=== PATIENT | female | born 1985 | race Caucasian/White ===

== ENCOUNTER 2024-09-24 08:44 | Inpatient (IN) | payer OTHER ==
[~2024-09-24] VITALS: Ht 165.1 cm; Wt 48.9 kg
--- NOTE | 2024-09-24 09:31 | ED.PDOC ---
History of Present Illness HPI Comments 38 y.o female with PMHx of HTN, presents to the ED for a chief complaint of left arm pain radiating to her chest and back associated with SOB and nausea that started today. Patient reports symptoms presented at rest, appears anxious with recent stress factors in her life x 1 day. Patient denies any fever, chi lls, vomiting, leg swelling, history of cardiac disease or blood clots. 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 Family History Family History: Reviewed,noncontributory to illness, No family hx of Cancer, No family hx of DM, No family hx of Heart keri, No family hx of HTN, No family hx ofKidney keri, No family hx of Liver keri, No family hx of Lung keri, No family hx of Stroke Social History Smoker: Non-Smoker Alcohol: Denies ETOH Use Drugs: Denies Drug Use Lives In: Home Constitutional: denies: chills, diaphoresis, fatigue, fever, malaise, sweats, weakness, others EENTM: denies: blurred vision, double vision, ear bleeding, ear discharge, ear drainage, ear pain, ear ringing, eye pain, eye redness, hearing loss, mouth pain, mouth swelling, nasal discharge, nose bleeding, nose congestion, nose pain, photophobia, tearing, throat pain, throat swelling, voice changes, others Respiratory: denies: cough, hemoptysis, orthopnea, SOB at rest, shortness of breath, SOB with excertion, stridor, wheezing, others Cardiovascular: reports: chest pain, left arm pain; denies: dizzy spells, diaphoresis, Dyspnea on exertion, edema, irregular heart beat, lightheadedness, palpitations, PND, syncope, others Gastrointestinal: denies: abdomen distended, abdominal pain, blood streaked bowels, constipated, diarrhea, dysphagia, difficulty swallowing, hematemesis, melena, nausea, poor appetite, poor fluid intake, rectal bleeding, rectal pain, vomiting, others Genitourinary: denies: abnormal vagina bleeding, burning, dyspareunia, dysuria, flank pain, frequency, hematuria, incontinence, pain, , vagina discharge, urgency, others Neurological: denies: dizziness, fainting, headache, left sided numbness, left sided weakness, numbness, paresthesia, pre-existing deficit, right sided numbness, right sided weakness, seizure, speech problems, tingling, tremors, weakness, others Musculoskeletal: reports: back pain; denies: gout, joint pain, joint swelling, muscle pain, muscle stiffness, neck pain, others Integumetry: denies: bruises, change in color, change in hair/nails, dryness, laceration, lesions, lumps, rash, wounds, others Allergic/Immunocompromised: denies: Difficulty Healing, Frequent Infections, Hives, Itching, others Hematologic/Lymphatic: denies: anemia, blood clots, easy bleeding, easy bruisi ng, swollen glands, others Endocrine: denies: excessive hunger, excessive sweating, excessive thirst, exce ssive urination, flushing, intolerance to cold, intolerance to heat, unexplained weight gain, unexplained weight loss, others Psychiatric: reports: anxiety; denies: bipolar disorder, depression, hopeless, panic disorder, schizophrenia, sleepless, suicidal, others All Other Systems: Reviewed and Negative Physical Exam General Appearance: Moderate Distress (Patient appears anxious) HEENT: Normal ENT Inspection, Pharynx Normal, TMs Normal Neck: Full Range of Motion, Non-Tender, Normal, Normal Inspection Respiratory: Chest Non-Tender, Lungs Clear, No Accessory Muscle Use, No Respiratory Distress, Normal Breath Sounds Cardiovascular: No Edema, No JVD, No Murmur, No Gallop, Normal Peripheral Pulses, Regular Rate/Rhythm Breast Exam: Deferred Gastrointestinal: No Organomegaly, Non Tender, No Pulsatile Mass, Normal Bowel Sounds, Soft Genitalia: Deferred Pelvic: Deferred Rectal: Deferred Extremities: No calf tenderness, Normal capillary refill, Normal inspection, Normal range of motion, Non-tender, No pedal edema Musculoskeletal : Apperance: Normal Neurologic: Alert, sand operator II-XII nml as Tested, No Motor Deficits, Normal Affect, Normal Mood, No Sensory Deficits Cerebellar Function: Normal Reflexes: Normal Skin: Dry, Normal Color, Warm Lymphatic: No Adenopathy Was a procedure done? Was a procedure done?: No Differential Dx Considerations may include: Anxiety, Angina, Electrolyte imbalance, Dehydration, Strain, Sprain X-Ray, Labs, Meds, VS Vital Signs Date Time Temp Pulse Resp B/P (MAP) Pulse Ox O2 Delivery O2 Flow Rate FiO2 09/24/24 10:39 98.5 63 18 150/78 (102) 97 98.5 09/24/24 08:55 98.3 72 18 161/85 (110) 100 98.3 Lab Test 09/24/24 11:00 09/24/24 09:41 09/24/24 08:59 Range/Units Troponin I High Sensitivity 266 *H 53 *H </=34 ng/L White Blood Count 6.7 4.4-10.8 10^3/uL Red Blood Count 5.35 H 4.0-5.20 10^6/uL Hemoglobin 13.4 12.2-16.2 g/dL Hematocrit 40.6 36.0-46.0 % Mean Corpuscular Volume 76.0 L 80.0-100.0 fL Mean Corpuscular Hemoglobin 25.1 L 28.0-32.0 pg Mean Corpuscular Hemoglobin Concent 33.0 32.0-36.0 g/dL Red Cell Distribution Width 16.1 H 11.8-14.3 % Platelet Count 283 140-450 10^3/uL Mean Platelet Volume 6.9 6.9-10.8 fL Neutrophils (%) (Auto) 70.3 37.0-80.0 % Lymphocytes (%) (Auto) 20.0 10.0-50.0 % Monocytes (%) (Auto) 6.6 0.0-12.0 % Eosinophils (%) (Auto) 2.4 0.0-7.0 % Basophils (%) (Auto) 0.7 0.0-2.0 % Neutrophils # (Auto) 4.7 1.6-8.6 10 ^3/uL Lymphocytes # (Auto) 1.3 0.4-5.4 10 ^3/uL Monocytes # (Auto) 0.4 0-1.3 10 ^3/uL Eosinophils # (Auto) 0.2 0-0.8 10 ^3/uL Basophils # (Auto) 0 0-0.2 10 ^3/uL Nucleated Red Blood Cells 0.1 % Sodium Level 140 136-145 mmol/L Potassium Level 3.7 3.5-5.1 mmol/L Chloride Level 106 98-107 mmol/L Carbon Dioxide Level 23 20-31 mmol/L Anion Gap 11 5-15 Blood Urea Nitrogen 7 L 9-23 mg/dL Creatinine 0.82 0.550-1.02 mg/dL Glomerular Filtration Rate Calc 93 >90 mL/min BUN/Creatinine Ratio 8.5 L 10.0-20.0 Serum Glucose 88 74-106 mg/dL Calcium Level 10.0 8.7-10.4 mg/dL Urine Color Light-yellow Yellow Urine Clarity Clear Clear Urine pH 7.0 5.0-9.0 Urine Specific [place] 1.012 1.001-1.035 Urine Protein 1+ H Negative Urine Ketones Negative Negative Urine Blood Negative Negative /uL Urine Nitrite Negative Negative Urine Bilirubin Negative Negative Urine Urobilinogen Normal Negative mg/dL Urine Leukocyte Esterase Negative Negative /uL Urine RBC 1 0 - 4 /hpf Urine Microscopic WBC 1 0-5 /HPF Urine Squamous Epithelial Cells Few <5 /hpf Urine Bacteria None seen None Seen /hpf Urine Hyaline Casts Few 0 - 2 /lpf Urine Mucus Few None Seen Urine Glucose Normal Normal mg/dL CHEST RADIOGRAPH Indication: palpitations Technique: Single frontal view of the chest was obtained COMPARISON: None FINDINGS: Lines and Tubes: None Lungs: Clear Pleura: No effusion. No pneumothorax. Cardiomediastinal contours: Unremarkable Bones: Unremarkable IMPRESSION: No acute disease. Time of 1ST Reevaluation: 09:31 Reevaluation 1ST: Unchanged Patient Education/Counseling: Diagnosis, Treatment, Prognosis Family Education/Counseling: Diagnosis, Treatment, Prognosis SEPSIS Sepsis Screen Date sepsis recognized/suspect: Sep 24, 2024 Time Sepsis recognized/suspect: 854 Recent Procedure: No On Antibiotic Therapy: No Respiratory Rate >20: No Heart Rate >90: No Temp<36 C (96.8 F) or >38.3 C: No SBP <90 or MAP <65 mmHG: No New Acute Mental Status Change: No Is the patient on CPAP, BIPAP,: No Orders/Vitals/Labs Physician Orders Chest Portable (09/24/24 09:28) Electrocardigram (09/24/24 09:28) Troponin-I Hs (09/24/24 12:28) Electrocardigram (09/24/24 10:28) Electrocardigram (09/24/24 12:28) Aspirin Tablet (09/24/24 12:30) Vital Signs Date Time Temp Pulse Resp B/P (MAP) Pulse Ox O2 Delivery O2 Flow Rate FiO2 09/24/24 10:39 98.5 63 18 150/78 (102) 97 98.5 09/24/24 08:55 98.3 72 18 161/85 (110) 100 98.3 Laboratory Tests Test 09/24/24 09:41 White Blood Count 6.7 10^3/uL (4.4-10.8) Departure 1 Departure Time of Disposition: 12:17 (Patient presented with chest pain that was concerning for possible STEMI, ACS, PE, Pneumonia, Muscle Strain, COPD, Dissection. Data: 1. I ordered and reviewed the result of at least 3 labs including a CBC, BMP, and Troponin. 2. I independently interpreted the following tests: EKG which shows normal sinus rhythm and Chest X-ray which shows benign chest.Risk:This patient has a high risk of morbidity due to further diagnostic testing or treatment and may suffer from an acute cardiac or respiratory disorder. Workup reveals concern for ACS and patient should be admitted for further workup and possible expert consultation. ) Impression: Primary Impression: Acute chest pain Additional Impression: Elevated troponin Disposition: ADMITTED INPATIENT Admit to: Med Surg Condition: Guarded Critical Care Note Critical Care Time?: Yes Critical care comment: Acute chest pain Authorized and Performed by: Kimberley Centeno MD Total critical care time: Approximately 43 minutes Due to a high probability of clinically significant, life threatening deterioration, the patient required my highest level of preparedness to intervene emergently and I personally spent this critical care time directly and personally managing the patient. This critical care time included obtaining a history; examining the patient; pulse oximetry; ordering and review of studies; arranging urgent treatment with development of a management plan; evaluation of patient's response to treatment; frequent reassessment; and, discussions with other providers. This critical care time was performed to assess and manage the high probability of imminent, life-threatening deterioration that could result in multi-organ failure. It was exclusive of separately billable procedures and treating other patients and teaching time. Please see my other sections and the rest of the note for further information on patient assessment and treatment. Stability Stability form required: No Heart Score Heart Score: Heart Score Response (Comments) Value History Moderate Suspicious 1 EKG Normal 0 Age <45 0 Risk Factors No known risk factors 0 Troponin >3 x's Normal limit 2 Total 3 I personally scribed for KIMBERLEY CENTENO MD ([facility]) on 09/24/24 at 09:31. Electronically submitted by Annie Dillard ([facility]). I personally scribed for KIMBERLEY CENTENO MD ([facility]) on 09/24/24 at 10:42. Electronically submitted by Annie Dillard ([facility]). KIMBERLEY CENTENO MD Sep 24, 2024 09:31
[2024-09-24 09:32] LABS: Urine Bacteria None Seen /hpf (None Seen)
[2024-09-24 09:45] LABS: Urine Blood Negative /uL (Negative); Urine Clarity Clear (Clear); Urine Color Light-Yellow (Yellow); Urine Hyaline Cast FEW /lpf (0 - 2); Urine Mucus FEW (None Seen); Urine Protein, UAD 1+ (Negative); Urine Specific Gravity 1.012 (1.001-1.035); Urine Squamous Epithelial Cell FEW /hpf (<5); Urine Urobilinogen Normal (Negative); Urine WBC 1 /HPF (0-5)
[2024-09-24 10:05] LABS: Basophils # (auto) 0 10 ^3/uL (0-0.2); Basophils % (auto) 0.7 % (0.0-2.0); Eosinophils # (auto) 0.2 10 ^3/uL (0-0.8); Eosinophils % (auto) 2.4 % (0.0-7.0); Hematocrit 40.6 % (36.0-46.0); Hemoglobin 13.4 g/dL (12.2-16.2); Lymphocytes # (auto) 1.3 10 ^3/uL (0.4-5.4); Mean Corpuscular Hemoglobin 25.1 pg (28.0-32.0); Monocytes # (auto) 0.4 10 ^3/uL (0-1.3); Monocytes % (auto) 6.6 % (0.0-12.0); Neutrophils # (auto) 4.7 10 ^3/uL (1.6-8.6); Neutrophils % (auto) 70.3 % (37.0-80.0); Nucleated Red Blood Cells % 0.1 %; Platelet Count (auto) 283 10^3/uL (140-450); Red Blood Cells 5.35 10^6/uL (4.0-5.20); Red Cell Distribution Width 16.1 % (11.8-14.3); White Blood Cell 6.7 10^3/uL (4.4-10.8)
--- NOTE | 2024-09-24 10:14 | DVH ---
CHEST RADIOGRAPH Indication: palpitations Technique: Single frontal view of the chest was obtained COMPARISON: None FINDINGS: Lines and Tubes: None Lungs: Clear Pleura: No effusion. No pneumothorax. Cardiomediastinal contours: Unremarkable Bones: Unremarkable IMPRESSION: No acute disease.
[2024-09-24 10:40] LABS: Chloride 106 mmol/L (98-107); Potassium 3.7 mmol/L (3.5-5.1); Sodium 140 mmol/L (136-145)
[2024-09-24 10:41] LABS: Anion Gap 11 (5-15); Carbon Dioxide 23 mmol/L (20-31)
[2024-09-24 10:46] LABS: BUN/Creatinine Ratio 8.5 (10.0-20.0); Glucose 88 mg/dL (74-106)
[2024-09-24 10:49] LABS: Blood Urea Nitrogen 7 mg/dL (9-23)
[2024-09-24 13:20] VITALS: PULSE 60; RESP 12; O2SAT 99
--- NOTE | 2024-09-24 13:41 | ECG ---
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
[2024-09-24] MEDS: SODIUM CHLORIDE 0.9% 1,000 ML IV ONE (13:52)
[2024-09-24] MEDS: ASPirin 81 mg TAB PO ONE (14:01)
[2024-09-24] MEDS: ONDANSETRON HCL 4 MG/2 ML VIAL IV ONE (14:01)
[2024-09-24] MEDS: MORPHINE SULFATE 4 MG/ML SYR/VIAL IV ONE (14:02)
--- NOTE | 2024-09-24 15:55 | DVHHP2 ---
Admitting Diagnosis: Chest pain History of Present Illness 38 y.o female with PMHx of HTN, presents to the ED for a chief complaint of left arm pain radiating to her chest and back associated with SOB and nausea that started today. Patient reports symptoms presented at rest, appears anxious with recent stress factors in her life x 1 day. Patient denies any fever, chills, vomiting, leg swelling, history of cardiac disease or blood clots. PAST MEDICAL HISTORY: HTN Surgical History: Denies all surgeries SPRING INTERN History: No Pertinent SPRING INTERN History Family History Family History: Reviewed,noncontributory to illness, No family hx of Cancer, No family hx of DM, No family hx of Heart keri, No family hx of HTN, No family hx o fKidney keri, No family hx of Liver keri, No family hx of Lung keri, No family hx of Stroke Social History Smoker: Non-Smoker Alcohol: Denies ETOH Use Drugs: Denies Drug Use Lives In: Home Allergies: Coded Allergies: NO KNOWN ALLERGIES (Unverified , 09/24/24) Current Medications Current Medications Medications (Trade) Dose Ordered Sig/Liat Route PRN Reason Start Time Stop Time Status Last Admin Heparin Sodium/ Dextrose 250 ml @ 13.488 mls/ hr [id number] IV 09/24/24 16:00 UNV Vital Signs Vital Signs Date Time Temp Pulse Resp B/P (MAP) Pulse Ox O2 Delivery O2 Flow Rate FiO2 09/24/24 14:32 60 15 151/66 09/24/24 13:20 99 Room Air* 0 21 09/24/24 13:20 98.1 98.1 Physical Exam Generally -38 years old woman, morbidly obese, resting in bed. Mild distress HEENT atraumatic, normocephalic Heart-regular rate and rhythm Lungs clear to auscultate bilaterally Abdomen soft nontender nondistended Musculoskeletal-no edema cyanosis Neuro-AO x3, no focal deficits Results Labs Test 09/24/24 13:33 09/24/24 09:41 09/24/24 08:59 Range/Units Troponin I High Sensitivity 1419 *H </=34 ng/L White Blood Count 6.7 4.4-10.8 10^3/uL Red Blood Count 5.35 H 4.0-5.20 10^6/uL Hemoglobin 13.4 12.2-16.2 g/dL Hematocrit 40.6 36.0-46.0 % Mean Corpuscular Volume 76.0 L 80.0-100.0 fL Mean Corpuscular Hemoglobin 25.1 L 28.0-32.0 pg Mean Corpuscular Hemoglobin Concent 33.0 32.0-36.0 g/dL Red Cell Distribution Width 16.1 H 11.8-14.3 % Platelet Count 283 140-450 10^3/uL Mean Platelet Volume 6.9 6.9-10.8 fL Neutrophils (%) (Auto) 70.3 37.0-80.0 % Lymphocytes (%) (Auto) 20.0 10.0-50.0 % Monocytes (%) (Auto) 6.6 0.0-12.0 % Eosinophils (%) (Auto) 2.4 0.0-7.0 % Basophils (%) (Auto) 0.7 0.0-2.0 % Neutrophils # (Auto) 4.7 1.6-8.6 10 ^3/uL Lymphocytes # (Auto) 1.3 0.4-5.4 10 ^3/uL Monocytes # (Auto) 0.4 0-1.3 10 ^3/uL Eosinophils # (Auto) 0.2 0-0.8 10 ^3/uL Basophils # (Auto) 0 0-0.2 10 ^3/uL Nucleated Red Blood Cells 0.1 % Sodium Level 140 136-145 mmol/L Potassium Level 3.7 3.5-5.1 mmol/L Chloride Level 106 98-107 mmol/L Carbon Dioxide Level 23 20-31 mmol/L Anion Gap 11 5-15 Blood Urea Nitrogen 7 L 9-23 mg/dL Creatinine 0.82 0.550-1.02 mg/dL Glomerular Filtration Rate Calc 93 >90 mL/min BUN/Creatinine Ratio 8.5 L 10.0-20.0 Serum Glucose 88 74-106 mg/dL Calcium Level 10.0 8.7-10.4 mg/dL Urine Color Light-yellow Yellow Urine Clarity Clear Clear Urine pH 7.0 5.0-9.0 Urine Specific [place] 1.012 1.001-1.035 Urine Protein 1+ H Negative Urine Ketones Negative Negative Urine Blood Negative Negative /uL Urine Nitrite Negative Negative Urine Bilirubin Negative Negative Urine Urobilinogen Normal Negative mg/dL Urine Leukocyte Esterase Negative Negative /uL Urine RBC 1 0 - 4 /hpf Urine Microscopic WBC 1 0-5 /HPF Urine Squamous Epithelial Cells Few <5 /hpf Urine Bacteria None seen None Seen /hpf Urine Hyaline Casts Few 0 - 2 /lpf Urine Mucus Few None Seen Urine Glucose Normal Normal mg/dL Primary Diagnosis Chest pain Elevated troponin suspect NSTEMI Plan EKG shows no significant ST segment changes Patient states she has persistent chest pain improved since eight Troponin trending up Check echo of the heart rule out ACS Cardiology consult for lower troponin rule out ACS Start heparin drip for ACS protocol Pain control NPO except meds for possible cardiac catheterization if suspect STEMI Full code SCD for DVT prophylaxis PPI for GI prophylaxis Plan discussed with: Patient Date of Service: Sep 24, 2024 Billing Provider: ALBERTO MENDEZ MD Common Visit Codes: [id number] INP/OBS CARE (HIGH) ALBERTO MENDEZ MD Sep 24, 2024 15:55
[2024-09-24] MEDS: LORazepam 2MG/ML-1ML VIAL IV ONE (15:59)
[2024-09-24] MEDS ORDERED: NITROGLYCERIN 0.4 MG SL TAB SL PRN (16:00)
[2024-09-24 16:25] LABS: Eosinophils # (auto) 0.1 10 ^3/uL (0-0.8); Hematocrit 37.2 % (36.0-46.0); Mean Corpuscular Hgb Conc. 32.7 g/dL (32.0-36.0); Monocytes # (auto) 0.5 10 ^3/uL (0-1.3); Neutrophils # (auto) 5.8 10 ^3/uL (1.6-8.6); Nucleated Red Blood Cells % 0.1 %; White Blood Cell 7.9 10^3/uL (4.4-10.8)
[2024-09-24 16:26] LABS: Basophils # (auto) 0.1 10 ^3/uL (0-0.2); Basophils % (auto) 0.8 % (0.0-2.0); Eosinophils % (auto) 1.4 % (0.0-7.0); Hemoglobin 12.2 g/dL (12.2-16.2); Lymphocytes # (auto) 1.4 10 ^3/uL (0.4-5.4); Lymphocytes % (auto) 17.6 % (10.0-50.0); Mean Corpuscular Hemoglobin 25.1 pg (28.0-32.0); Mean Corpuscular Volume 76.8 fL (80.0-100.0); Monocytes % (auto) 6.1 % (0.0-12.0); Neutrophils % (auto) 74.1 % (37.0-80.0); Platelet Count (auto) 278 10^3/uL (140-450); Red Blood Cells 4.84 10^6/uL (4.0-5.20)
--- NOTE | 2024-09-24 16:27 | CONS ---
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
--- NOTE | 2024-09-24 16:48 | DVHINCON2 ---
Date Seen: Sep 24, 2024 Referring Physician MD Sammy Reason for Consultation Chest pain, elevated troponin History of Present Illness This is a 38-year-old female patient who presents to the emergency room with chief complaint of chest pain. The patient reports that at approximately 0830 this morning after waking up, she began to experience left arm pain. She states that shortly thereafter her left arm pain turned into chest pain. She describes the pain as unprovoked, intermittent, burning in nature, substernal with radiation to her upper back. Associated symptoms include shortness of breath. Initial twelve lead electrocardiogram reveals normal sinus rhythm with nonspecific ST segment changes to anterior leads and baseline wander throughout. Initial troponin level of 53ng/L with significant up trend thereafter and current peak level at 1419ng/L. Significant past medical history includes hypertension, dyslipidemia, kidney stones, and obesity. Past Medical History Past medical history reviewed. No other significant than mentioned above. Past Surgical History Bilateral tubal ligation Family History Family history reviewed. Social History Denies the use of tobacco, alcohol or illicit drugs. Allergies: Coded Allergies: NO KNOWN ALLERGIES (Unverified , 09/24/24) Home Meds Home medications reviewed. Current Medications Current Medications Medications (Trade) Dose Ordered Sig/Liat Route PRN Reason Start Time Stop Time Status Last Admin Heparin Sodium/ Dextrose 250 ml @ 13 mls/hr [id number] IV 09/24/24 16:00 Sodium Chloride (Saline Lock Ns) 10 ml Q8HR IV 09/24/24 22:00 Docusate Sodium (Colace Capsule) 100 mg BIDPRN PRN PO FOR CONSTIPATION 09/24/24 16:00 Acetaminophen (Tylenol Tablet) 650 mg Q6HP PRN PO PAIN SCALE 1-3 OR TEMP>100.4 09/24/24 16:00 Acetaminophen/ Hydrocodone Bitart ([place] 5/325MG Tab) 1 tab Q4HP PRN PO MODERATE PAIN (4-6 PAIN SCALE) 09/24/24 16:00 Ondansetron HCl (Zofran) 4 mg Q4HP PRN IV NAUSEA / VOMITING 09/24/24 16:00 Nitroglycerin (Ntrostat Sublingual) 0.4 mg Q5MINP PRN SL FOR CHEST PAIN 09/24/24 16:00 Morphine Sulfate 2 mg Q30M PRN IV FOR CHEST PAIN 09/24/24 16:00 Pantoprazole Sodium (Protonix) 40 mg DAILY IV 09/25/24 10:00 Review of Systems Constitutional: No symptom reported Ears, Nose, & Throat: No symptom reported Eyes: No symptom reported Neurological: No symptoms reported Pulmonary/Respiratory: Shortness of breath Cardiovascular: Chest pain Gastrointestinal: No symptom reported Genitourinary: No symptom reported Musculoskeletal: No symptom reported Skin: No symptom reported Psychiatric: No symptom reported Endocrine: No symptom reported Hematologic/Lymphatic: No symptom reported Vital Signs Vital Signs Date Time Temp Pulse Resp B/P (MAP) Pulse Ox O2 Delivery O2 Flow Rate FiO2 09/24/24 14:32 60 15 151/66 09/24/24 13:20 99 Room Air* 0 21 09/24/24 13:20 98.1 98.1 Physical Exam General Appearance: Cooperative. Obese Pulmonary/Respiratory: Clear, bilateral breaths sounds. Cardiovascular/Chest: Regular rate and rhythm. Peripheral Pulses: 2+ Radial (R). 2+ Radial (L). 2+ Pedal (R). 2+ Pedal (L) Abdominal Exam: Normal bowel sounds. Ankle Exam: Negative ankle edema Lower extremities: Negative lower extremity edema Neuro/Mental Status: A/OX4, coherent. Thoughts/Psych: Normal thought pattern. Appropriate mood and affect. Good judgment and insight. Appearance: No acute distress. Skin Exam: Normal inspection. Normal color. Warm and dry. Labs/Diagnostic Data Labs Test 09/24/24 16:08 09/24/24 09:41 09/24/24 08:59 Range/Units White Blood Count 7.9 4.4-10.8 10^3/uL Red Blood Count 4.84 4.0-5.20 10^6/uL Hemoglobin 12.2 12.2-16.2 g/dL Hematocrit 37.2 36.0-46.0 % Mean Corpuscular Volume 76.8 L 80.0-100.0 fL Mean Corpuscular Hemoglobin 25.1 L 28.0-32.0 pg Mean Corpuscular Hemoglobin Concent 32.7 32.0-36.0 g/dL Red Cell Distribution Width 16.0 H 11.8-14.3 % Platelet Count 278 140-450 10^3/uL Mean Platelet Volume 7.0 6.9-10.8 fL Neutrophils (%) (Auto) 74.1 37.0-80.0 % Lymphocytes (%) (Auto) 17.6 10.0-50.0 % Monocytes (%) (Auto) 6.1 0.0-12.0 % Eosinophils (%) (Auto) 1.4 0.0-7.0 % Basophils (%) (Auto) 0.8 0.0-2.0 % Neutrophils # (Auto) 5.8 1.6-8.6 10 ^3/uL Lymphocytes # (Auto) 1.4 0.4-5.4 10 ^3/uL Monocytes # (Auto) 0.5 0-1.3 10 ^3/uL Eosinophils # (Auto) 0.1 0-0.8 10 ^3/uL Basophils # (Auto) 0.1 0-0.2 10 ^3/uL Nucleated Red Blood Cells 0.1 % Sodium Level 140 136-145 mmol/L Potassium Level 3.7 3.5-5.1 mmol/L Chloride Level 106 98-107 mmol/L Carbon Dioxide Level 23 20-31 mmol/L Anion Gap 11 5-15 Blood Urea Nitrogen 7 L 9-23 mg/dL Creatinine 0.82 0.550-1.02 mg/dL Glomerular Filtration Rate Calc 93 >90 mL/min BUN/Creatinine Ratio 8.5 L 10.0-20.0 Serum Glucose 88 74-106 mg/dL Calcium Level 10.0 8.7-10.4 mg/dL Urine Color Light-yellow Yellow Urine Clarity Clear Clear Urine pH 7.0 5.0-9.0 Urine Specific [place] 1.012 1.001-1.035 Urine Protein 1+ H Negative Urine Ketones Negative Negative Urine Blood Negative Negative /uL Urine Nitrite Negative Negative Urine Bilirubin Negative Negative Urine Urobilinogen Normal Negative mg/dL Urine Leukocyte Esterase Negative Negative /uL Urine RBC 1 0 - 4 /hpf Urine Microscopic WBC 1 0-5 /HPF Urine Squamous Epithelial Cells Few <5 /hpf Urine Bacteria None seen None Seen /hpf Urine Hyaline Casts Few 0 - 2 /lpf Urine Mucus Few None Seen Urine Glucose Normal Normal mg/dL Assessment Chest pain, rule out coronary artery disease Rule out structural heart disease Hypertension Dyslipidemia Obesity Plan/Recommendation We will continue with the following plan/recommendations (Dr. Bland): * Transthoracic echocardiogram to evaluate cardiac function * Chest pain protocol * PIERRE score: 2 points * HEART score: 4 points * Continue heparin drip per ACS protocol * Blood pressure control * Single antiplatelet therapy and lipid-lowering agent * Close Cardiac surveillance Case discussed with . Given the patient's clinical presentation, elevated troponin levels, and twelve lead electrocardiogram, the patient may benefit from a coronary angiogram with left heart catheterization. The procedure was discussed with the patient in full detail including risks and benefits. Risks include but are not limited to bleeding, contrast-induced nephropathy, stroke, and even . The patient understands and is agreeable to undergo the procedure. We will schedule the patient at soonest availability on 09/25/24. Thank you for allowing us to care for this patient. Please call with any questions or concerns. Critical care time spent: 44 minutes This medical document was created using an electronic medical record system with voice recognition software and computerized dictation system. Although this document has been carefully reviewed, there might still be some phonetic and typographical errors. Occasional wrong-word or ``sound-alike substitutions may have occurred due to the inherent limitations of voice recognition software. These areas are purely typographical due to imperfections of the software programs and do not reflect any compromise in the patient's medical care. Please read the chart carefully and recognize, using context, where these substitutions have occurred. Plan discussed with: Patient NYHA Physical activity limitations: NA Date of Service: Sep 24, 2024 Billing Provider: CLAUDIA GUSMAN Cardiology Common Codes: [id number] INP/OBS CARE (High) Cardiology Consultation Codes: [id number] CONSULT <45MIN CLAUDIA GUSMAN Sep 24, 2024 16:48
[2024-09-24 16:51] LABS: Triglycerides 143 mg/dL (< 150)
[2024-09-24 16:53] LABS: HDL Cholesterol 43 mg/dL (40-59)
[2024-09-24 16:54] LABS: Cholesterol 162 mg/dL (< 200)
[2024-09-24 16:56] LABS: LDL Cholesterol 105 mg/dL (< 100)
[2024-09-24 17:08] LABS: INR 1.03 (0.9-1.15); Partial Thromboplastin Time 27.4 SEC (24.5-34.5); Prothrombin Time 10.9 sec (9.3-11.8)
[2024-09-24] MEDS: HEPARIN SODIUM (PORCINE) 5000 UNITS/ML 1ML VIAL IV ONE (17:09)
[2024-09-24] MEDS: HEPARIN DRIP/D5W 100UNITS/ML 250 ML IV SCH (17:11)
[2024-09-24] MEDS ORDERED: hydrALAZINE HCL 20 MG/ML VL IV PRN (17:30)
[2024-09-24] MEDS: ONDANSETRON HCL 4 MG/2 ML VIAL IV PRN (18:22)
[2024-09-24] MEDS: MORPHINE SULFATE INJ 2 MG/ml SYRG IV PRN (18:23)
[2024-09-24 19:55] VITALS: PULSE 75; RESP 16; O2SAT 99
[2024-09-24] MEDS: ATORVASTATIN 20 MG TAB PO SCH (21:49)
[2024-09-24] MEDS: SODIUM CHLOR 0.9% PF (SALINE LOCK) 10ML VIAL/SYR IV SCH (21:49)
[2024-09-24 22:33] LABS: INR 1.03 (0.9-1.15); Partial Thromboplastin Time 26.7 SEC (24.5-34.5); Prothrombin Time 10.9 sec (9.3-11.8)
[2024-09-25] VITALS (17 sets, daily range): BP systolic 117–160; BP diastolic 64–92; PULSE 61–96; RESP 14–19; TEMP 97.6–98.3; O2SAT 93–100
[2024-09-25] MEDS: HEPARIN SODIUM (PORCINE) 5000 UNITS/ML 1ML VIAL IV ONE (00:16)
[2024-09-25] MEDS: HEPARIN DRIP/D5W 100UNITS/ML 250 ML IV SCH (00:17)
[2024-09-25] MEDS: HYDROcodone-ACET 5/325MG TAB PO PRN (01:29)
[2024-09-25] MEDS: ACETAMINOPHEN 325 MG TAB PO PRN (01:30)
[2024-09-25] MEDS: TEMAZEPAM 15 MG CAP PO ONE (04:45)
[2024-09-25 07:42] LABS: Basophils # (auto) 0.1 10 ^3/uL (0-0.2); Basophils % (auto) 0.8 % (0.0-2.0); Eosinophils # (auto) 0.2 10 ^3/uL (0-0.8); Eosinophils % (auto) 3.2 % (0.0-7.0); Hematocrit 37.9 % (36.0-46.0); Hemoglobin 12.4 g/dL (12.2-16.2); Lymphocytes # (auto) 1.9 10 ^3/uL (0.4-5.4); Lymphocytes % (auto) 29.8 % (10.0-50.0); Mean Corpuscular Hemoglobin 24.7 pg (28.0-32.0); Mean Corpuscular Hgb Conc. 32.7 g/dL (32.0-36.0); Mean Corpuscular Volume 75.7 fL (80.0-100.0); Monocytes # (auto) 0.5 10 ^3/uL (0-1.3); Monocytes % (auto) 8.2 % (0.0-12.0); Neutrophils # (auto) 3.7 10 ^3/uL (1.6-8.6); Nucleated Red Blood Cells % 0.1 %; Platelet Count (auto) 279 10^3/uL (140-450); Red Cell Distribution Width 16.1 % (11.8-14.3); White Blood Cell 6.3 10^3/uL (4.4-10.8)
[2024-09-25 07:46] LABS: INR 1.01 (0.9-1.15); Partial Thromboplastin Time 27.4 SEC (24.5-34.5); Prothrombin Time 10.7 sec (9.3-11.8)
[2024-09-25 07:50] LABS: Alanine Aminotransferase 14 U/L (7-40); Albumin 4.1 g/dL (3.2-4.8); Alkaline Phosphatase 87 U/L (46-116); Anion Gap 7 (5-15); Aspartate Aminotransferase 26 U/L (<34); BUN/Creatinine Ratio 11.4 (10.0-20.0); Blood Urea Nitrogen 12 mg/dL (9-23); Calcium 9.9 mg/dL (8.7-10.4); Carbon Dioxide 28 mmol/L (20-31); Chloride 106 mmol/L (98-107); Glucose 89 mg/dL (74-106); Potassium 4.2 mmol/L (3.5-5.1); Sodium 141 mmol/L (136-145); Total Protein 6.4 g/dL (5.7-8.2)
[2024-09-25 07:52] LABS: Bilirubin, Total 0.2 mg/dL (0.2-1.0)
--- NOTE | 2024-09-25 08:40 | CONS ---
Pharmacy Clinical Information: HEPARIN PROTOCOL SPOKE WITH CRISTIAN NUNEZ, CT SCAN TECHNOLOGIST RN WAS RUNNING RATE AT 16UNITS/HR NOT 1600UNITS/HR. RATE WAS CHANGED AT 0730 09/25/24. WILL NOT CHANGE RATE AT THIS TIME AND REDRAW APTT 6 HOURS FROM RATE CHANGE AT 0730. NEXT APTT DRAW AT 1330. PER PHARMACY PROTOCOL CONSTANZA BURRIS PHARMACIST Sep 25, 2024 08:39
[2024-09-25] MEDS: PANTOPRAZOLE 40 MG/10 ML VIAL INJ IV SCH (09:52)
[2024-09-25] MEDS: LISINOPRIL 20 MG TAB PO SCH (09:53)
[2024-09-25] MEDS: ASPirin 81 mg TAB PO SCH (09:54)
--- NOTE | 2024-09-25 13:53 | DVHOP2 ---
Operative Report - 2 Report Details Date: 09/25/24 Preop Diagnosis: CAD Postop Diagnosis: Mild cardiomyopathy Surgeon: Jann Bland MD Anesthesiologist: Conscious sedation Anesthesia: Mac, Local Consent: The patient was informed of the risks and benefits of the procedure. These include but are not limited to complications of anesthesia, postoperative infection, incomplete relief of symptoms, recurrence of symptoms, damage to blood vessels, nerves and tendons, deep venous thrombosis, pulmonary embolism and possible need for repeat surgery in the future. Complications: No complications Findings: Normal coronaries. Mild cardiomyopathy Indications for Surgery: Abnormal troponins Name of Procedure Performed Left heart catheterization. Bilateral cine coronary angiography. Left ventriculography. Procedure Details Procedure Details: Prior local anesthesia with 2% lidocaine to the right wrist and full informed consent obtained the patient was prepped and draped in usual fashion followed by placement of a six Faro[place] sheath into the right radial artery through which a multipurpose catheter was used for ventriculography and cannulation of both right and left coronary ostia. No complications. Hemodynamics: Aortic blood pressure was 110/70. End-diastolic pressure was 15. No gradient across the aortic valve on pullback. Coronary anatomy RCA is a large dominant vessel it is normal in its proximal mid and distal segments. PDA and posterolateral branches are normal. Left main is large and normal. Left anterior descending is large with two diagonals free of significant disease. Circumflex is large with two marginals free of significant disease. Ventriculography in the LUCIA projection shows an EF of 40% with global hypokinesis. Impression: Elevated left ventricular end-diastolic pressure at rest with decreased ejection fraction. Normal coronaries Recommendations: Medical therapy is warranted. Risk factor modification to continue. Condition Good Disposition Date of Service: Sep 25, 2024 Billing Provider: JANN BLAND Sr., MD Cardiology Common Codes: [id number] INP/OBS CARE (High) Cardiology Procedure Codes: [id number] HEART CATH W/INTRA INJ JANN BLAND Sr., MD Sep 25, 2024 13:53
--- NOTE | 2024-09-25 14:17 | ECG ---
[facility] Test Date: 2024-09-24 Test Time: 09:04:31 Pat Name: ZELDA HASTINGS Department: ER Room: 0278T Gender: F Connie Cleaner: GP : 1985 Requested By: KIMBERLEY CENTENO Order Number: [id number] Reading MD: Sudheer Bland Measurements Intervals [place] Rate: 91 P: 55 CA: 145 QRS: 67 QRSD: 101 T: 5 QT: 373 QTc: 459 Interpretive Statements Sinus rhythm Low voltage, precordial leads Borderline repolarization abnormality Minimal ST elevation, lateral leads Baseline wander in lead(s) II,aVF,V3,V4 Electronically Signed On 09-26-2024 21:17:06 PDT by Sudheer Bland Please click the below link to view image of tracing.
[2024-09-25] MEDS: VERAPAMIL 2.5MG/ML INJ 2ML VIAL IV ONE (14:25)
[2024-09-25] MEDS: fentaNYL CITRATE 100 MCG/2 ML VL ONE (14:26)
[2024-09-25] MEDS: MIDAZOLAM HCL 2MG/2ML 2ml VIAL (1mg/ml) ONE (14:27)
[2024-09-25] MEDS: LIDOCAINE 2%HCL (LOCAL ANESTH.) INJ 20ML MDV ONE (14:28)
[2024-09-25] MEDS: IODIXANOL 320MG/ML 100ML BTL IV ONE (14:31)
[2024-09-25 14:49] LABS: INR 1.04 (0.9-1.15); Partial Thromboplastin Time 41.2 SEC (24.5-34.5)
--- NOTE | 2024-09-25 15:26 | DVHPN2 ---
Progress Note Date Seen: Sep 25, 2024 Medical Necessity Reason Pt with a Central, PICC or Fol: No Subjective Patient reports: No new complaints Review of Systems: HEENT:Normal, CVS:Normal, RESPIRATORY:Normal, GI:Normal, :Normal, MSK:Normal, NEURO:Normal Objective vital signs Vital Sign Date Time Temp Pulse Resp B/P (MAP) Pulse Ox O2 Delivery O2 Flow Rate FiO2 09/25/24 14:45 71 16 131/82 (98) 97 09/25/24 13:45 97.6 97.6 09/25/24 08:00 Nasal Cannula* 2 28 Total Intake and Output 09/24/24 09/24/24 09/25/24 15:00 23:00 07:00 Intake Total 1000 ml Balance 1000 ml medications Current Medications Medications Dose Ordered Sig/Liat Route Start Time Stop Time Status Last Admin Dose Admin Sodium Chloride 10 ml Q8HR IV 09/24/24 22:00 09/25/24 14:40 10 ML Docusate Sodium 100 mg BIDPRN PRN PO 09/24/24 16:00 Acetaminophen 650 mg Q6HP PRN PO 09/24/24 16:00 09/25/24 09:54 650 MG Acetaminophen/ Hydrocodone Bitart 1 tab Q4HP PRN PO 09/24/24 16:00 09/25/24 14:45 1 TAB Ondansetron HCl 4 mg Q4HP PRN IV 09/24/24 16:00 09/25/24 01:29 4 MG Nitroglycerin 0.4 mg Q5MINP PRN SL 09/24/24 16:00 Morphine Sulfate 2 mg Q30M PRN IV 09/24/24 16:00 09/25/24 04:27 2 MG Pantoprazole Sodium 40 mg DAILY IV 09/25/24 10:00 09/25/24 09:52 40 MG Aspirin 81 mg DAILY PO 09/25/24 10:00 09/25/24 09:54 81 MG Atorvastatin Calcium 20 mg HS PO 09/24/24 22:00 09/24/24 21:49 20 MG Hydralazine HCl 10 mg Q6HP PRN IV 09/24/24 17:30 Lisinopril 20 mg DAILY PO 09/25/24 10:00 09/25/24 09:53 20 MG Examination: GENERAL:Normal, HEENT:Normal, NECK:Normal, LUNGS:Normal, CVS:Normal, ABDOMEN:Normal, MSK:Normal, SKIN:Normal, NEURO:Normal, :Normal laboratory and microbiology Laboratory Tests 09/25/24 07:07 Test 09/25/24 07:07 Range/Units Serum Glucose 89 74-106 mg/dL Problem List/Assessment/Plan Problem List/Assessment/Plan #1 acute mi s/p angio: cont meds #2 htn: monitor #3 morbid obesity #4 hyperlipidemia Plan discussed with: Patient Critical Care Time (mins): 41 (critical care time was 41 mins) Date of Service: Sep 25, 2024 Billing Provider: ROSELIA BROWN MD Common Visit Codes: [id number] CARE 30-74 MIN ROSELIA BROWN MD Sep 25, 2024 15:26
--- NOTE | 2024-09-25 16:31 | DVHSR ---
APPROVED REPORT EXAM: Two-dimensional and M-mode echocardiogram with Doppler and color Doppler. Blood Pressure: 151/66 mmHg INDICATION Chest Pain rule out acs, nstemi RISK FACTORS Obesity: Height: 5'5, Weight: 247 DIMENSIONS LVDd3.8 (3.8-5.7cm)LA (2D)4.4 (1.9-4.0cm)Aortic Root3.2 (2.0-3.7cm) LVDs2.6 (2.5-4.0cm)LA (MM) (1.9-4.0cm)Aortic Cusp Exc1.7 (1.5-2.0cm) EF (%) 50.0 (55-70%)Rt. Atrium3.8 (1.9-4.0cm)Asc. Aorta3.3 cm IVSd1.2 (0.7-1.1cm)RV (D)4.8 (1.8-2.4cm) PWd1.2 (0.7-1.1cm) Mitral Valve MitralMitral Stenosis E wave1.02m/sMV Mean GR.mmHg A wave1.02m/sMV Peak GR.50mmHg E/A ratio1.02D MVAcm2 DECEL [id number] 1/2 Timems Aortic Valve Aortic ValveAortic Stenosis V11.05m/Jo Mean GR.4mmHg V21.24m/Jo Peak GR.6mmHg LVOT Diameter1.9 (1.8-2.4cm)Doppler AVA2.40cm2 Pulmonic Valve V20.91m/s Tricuspid Valve TR Velocity2.32m/s [id number] Other Information Technically limited study due to body habitus. Conclusion LVEF 50-55% mild LVH, mild diastolic dysfunction Aortic valve not well visualized mild LA dilation
[2024-09-25] MEDS ORDERED: LISI20TA56 PO (21:41)
[2024-09-25] MEDS ORDERED: LISI40TA16 PO (21:47)
[2024-09-25 22:54] LABS: Hepatitis B Surface Antigen Negative (Negative)
[2024-09-25 22:59] LABS: Hepatitis C Antibody Negative (Negative)
[2024-09-26] VITALS (8 sets, daily range): BP systolic 119–140; BP diastolic 64–79; PULSE 49–71; RESP 16–20; TEMP 97–98.5; O2SAT 96–100
[2024-09-26] MEDS: MELATONIN 5 MG TAB PO SCH (01:09)
[2024-09-26 07:26] LABS: Basophils # (auto) 0 10 ^3/uL (0-0.2); Basophils % (auto) 0.6 % (0.0-2.0); Eosinophils # (auto) 0.2 10 ^3/uL (0-0.8); Eosinophils % (auto) 2.5 % (0.0-7.0); Hematocrit 36.7 % (36.0-46.0); Hemoglobin 11.9 g/dL (12.2-16.2); Lymphocytes # (auto) 1.6 10 ^3/uL (0.4-5.4); Lymphocytes % (auto) 19.9 % (10.0-50.0); Mean Corpuscular Hemoglobin 24.4 pg (28.0-32.0); Mean Corpuscular Hgb Conc. 32.4 g/dL (32.0-36.0); Mean Corpuscular Volume 75.3 fL (80.0-100.0); Monocytes # (auto) 0.6 10 ^3/uL (0-1.3); Monocytes % (auto) 7.6 % (0.0-12.0); Neutrophils # (auto) 5.4 10 ^3/uL (1.6-8.6); Neutrophils % (auto) 69.4 % (37.0-80.0); Platelet Count (auto) 295 10^3/uL (140-450); Red Blood Cells 4.88 10^6/uL (4.0-5.20); Red Cell Distribution Width 15.8 % (11.8-14.3); White Blood Cell 7.8 10^3/uL (4.4-10.8)
[2024-09-26 07:44] LABS: Alanine Aminotransferase 12 U/L (7-40); Albumin 4.1 g/dL (3.2-4.8); Alkaline Phosphatase 80 U/L (46-116); Anion Gap 9 (5-15); Aspartate Aminotransferase 15 U/L (<34); BUN/Creatinine Ratio 9.3 (10.0-20.0); Calcium 9.4 mg/dL (8.7-10.4); Carbon Dioxide 27 mmol/L (20-31); Chloride 106 mmol/L (98-107); Potassium 3.8 mmol/L (3.5-5.1); Sodium 142 mmol/L (136-145); Total Protein 6.3 g/dL (5.7-8.2)
[2024-09-26 08:02] LABS: Bilirubin, Total 0.3 mg/dL (0.2-1.0); Blood Urea Nitrogen 8 mg/dL (9-23); Glucose 112 mg/dL (74-106)
--- NOTE | 2024-09-26 09:24 | DVHPN2 ---
Subjective Patient chest pain improving Reviewed: H&P Changes from previous H/P or p: No Changes General: Per HPI Objective Vitals Vital Signs Date Time Temp Pulse Resp B/P (MAP) Pulse Ox O2 Delivery O2 Flow Rate FiO2 09/26/24 08:25 133/64 09/26/24 05:00 97.6 67 16 98 97.6 09/25/24 21:02 Nasal Cannula* 2 28 Intake/Output Intake and Output 09/26/24 07:00 Intake Total 560 ml Balance 560 ml Intake Oral 560 ml # Voids 3 Exam GEN: Healthy appearing, well-developed, NAD. HEENT: NC/AT; MMM. CV: RRR, no m/r/g. LUNGS: CTAB, no w/r/c. ABD: Soft, NT/ND, NBS, no masses or organomegaly. EXT: skin Warm, well perfused. no rashes. No clubbing, cyanosis, or edema. NEURO: Ambulating with no limitations. No focal deficits. Medications Current Medications Medications Dose Ordered Sig/Liat Route Start Time Stop Time Status Last Admin Dose Admin Sodium Chloride 10 ml Q8HR IV 09/24/24 22:00 09/26/24 05:35 10 ML Docusate Sodium 100 mg BIDPRN PRN PO 09/24/24 16:00 Acetaminophen 650 mg Q6HP PRN PO 09/24/24 16:00 09/25/24 09:54 650 MG Acetaminophen/ Hydrocodone Bitart 1 tab Q4HP PRN PO 09/24/24 16:00 09/25/24 14:45 1 TAB Ondansetron HCl 4 mg Q4HP PRN IV 09/24/24 16:00 09/25/24 16:47 4 MG Nitroglycerin 0.4 mg Q5MINP PRN SL 09/24/24 16:00 Morphine Sulfate 2 mg Q30M PRN IV 09/24/24 16:00 09/25/24 04:27 2 MG Pantoprazole Sodium 40 mg DAILY IV 09/25/24 10:00 09/26/24 08:26 40 MG Aspirin 81 mg DAILY PO 09/25/24 10:00 09/26/24 08:26 81 MG Atorvastatin Calcium 20 mg HS PO 09/24/24 22:00 09/25/24 21:40 20 MG Hydralazine HCl 10 mg Q6HP PRN IV 09/24/24 17:30 Lisinopril 20 mg DAILY PO 09/25/24 10:00 09/26/24 08:25 20 MG Melatonin 5 mg HS PO 09/26/24 00:15 09/26/24 01:09 5 MG Laboratory Results Laboratory Tests 09/26/24 06:53 Chemistry Test 09/26/24 06:53 Albumin 4.1 g/dL (3.2-4.8) Calcium Level 9.4 mg/dL (8.7-10.4) Total Protein 6.3 g/dL (5.7-8.2) Coagulation Test 09/25/24 14:22 Prothrombin Time 11.0 sec (9.3-11.8) Prothrombin Time INR 1.04 (0.9-1.15) Activated Partial Thromboplast Time 41.2 SEC (24.5-34.5) H LFT Test 09/26/24 06:53 Alanine Aminotransferase (ALT) 12 U/L (7-40) Alkaline Phosphatase 80 U/L (46-116) Aspartate Amino Transferase (AST) 15 U/L (<34) Total Bilirubin 0.3 mg/dL (0.2-1.0) Urinalysis Test 09/24/24 08:59 Urine Color Light-yellow (Yellow) Urine Clarity Clear (Clear) Urine pH 7.0 (5.0-9.0) Urine Specific [place] 1.012 (1.001-1.035) Urine Protein 1+ (Negative) H Urine Ketones Negative (Negative) Urine Blood Negative /uL (Negative) Urine Nitrite Negative (Negative) Urine Bilirubin Negative (Negative) Urine Urobilinogen Normal mg/dL (Negative) Urine Leukocyte Esterase Negative /uL (Negative) Urine RBC 1 /hpf (0 - 4) Urine Microscopic WBC 1 /HPF (0-5) Urine Squamous Epithelial Cells Few /hpf (<5) Urine Bacteria None seen /hpf (None Seen) Urine Hyaline Casts Few /lpf (0 - 2) Urine Mucus Few (None Seen) Urine Glucose Normal mg/dL (Normal) Labs and/or images reviewed: Labs reviewed by me, Image(s) reviewed by me Assessment/Plan Assessment/Plan 09/26- 2-year-old female here for chest pain had Troponinemia. Cardiology was consulted and angiogram was done yesterday 09/25/2024. Normal coronaries, EF normal range. No elevated RVSP. Unclear cause of high troponins. I think patient needs CTA chest tomorrow after 48 hours contrast to ruled out PE or chronic PE. Is stable thereafter patient can likely be DC on Sunday/Sunday. Patient is is feeling well she still has some lingering chest pain left chest wall. On exam lungs are clear, heart sounds normal, no abdominal pain, no lower extremity edema. She does suffer from chronic GERD. Patient's insurance is [employer] stable for transfer. Tentative tentative plan as above, but we will defer ongoing care to [place] accepting physicians diagnosis/plan: Chest pain, ruled out coronary artery disease - status post angiography 09/25 Ruled out OK Acute on chronic HFrEF (EF 40% on ventriculography), NYHA class II - start HFrEF medications Ruled out structural cardiac abnormalities Troponinemia, likely type 2 due to above NSTEMI Hypertension Dyslipidemia Obesity Tele Full code Stable for transfer Plan discussed with: Patient Date of Service: Sep 26, 2024 Billing Provider: NOHELIA MALAVE MD Common Visit Codes: [id number] INP/OBS CARE(HIGH) NOHELIA MALAVE MD Sep 26, 2024 09:24
--- NOTE | 2024-09-26 12:31 | DVHPN2 ---
Consult Progress Note Subjective Other Systems: The patient remains in sinus bradycardia on environmental monitoring specialist, no events reported overnight. Objective vital signs Vital Sign Date Time Temp Pulse Resp B/P (MAP) Pulse Ox O2 Delivery O2 Flow Rate FiO2 09/26/24 09:00 97.1 62 20 119/64 (82) 100 97.1 09/26/24 08:00 Nasal Cannula* 2 28 Total Intake and Output 09/25/24 09/25/24 09/26/24 15:00 23:00 07:00 Intake Total 560 ml Balance 560 ml medications Current Medications Medications Dose Ordered Sig/Liat Route Start Time Stop Time Status Last Admin Dose Admin Sodium Chloride 10 ml Q8HR IV 09/24/24 22:00 09/26/24 05:35 10 ML Docusate Sodium 100 mg BIDPRN PRN PO 09/24/24 16:00 Acetaminophen 650 mg Q6HP PRN PO 09/24/24 16:00 09/25/24 09:54 650 MG Acetaminophen/ Hydrocodone Bitart 1 tab Q4HP PRN PO 09/24/24 16:00 09/25/24 14:45 1 TAB Ondansetron HCl 4 mg Q4HP PRN IV 09/24/24 16:00 09/25/24 16:47 4 MG Nitroglycerin 0.4 mg Q5MINP PRN SL 09/24/24 16:00 Morphine Sulfate 2 mg Q30M PRN IV 09/24/24 16:00 09/25/24 04:27 2 MG Pantoprazole Sodium 40 mg DAILY IV 09/25/24 10:00 09/26/24 08:26 40 MG Aspirin 81 mg DAILY PO 09/25/24 10:00 09/26/24 08:26 81 MG Atorvastatin Calcium 20 mg HS PO 09/24/24 22:00 09/25/24 21:40 20 MG Hydralazine HCl 10 mg Q6HP PRN IV 09/24/24 17:30 Lisinopril 20 mg DAILY PO 09/25/24 10:00 09/26/24 08:25 20 MG Melatonin 5 mg HS PO 09/26/24 00:15 09/26/24 01:09 5 MG Examination: GENERAL:Normal, LUNGS:Normal, CVS:Normal, NEURO:Normal laboratory and microbiology Laboratory Tests 09/26/24 06:53 Test 09/26/24 06:53 Range/Units Serum Glucose 112 H 74-106 mg/dL Problem List/Assessment/Plan Problem List/Assessment/Plan Chest pain, ruled out coronary artery disease Acute on chronic HFrEF (EF 40% on ventriculography), NYHA class II NSTEMI type II Hypertension Dyslipidemia Obesity Plan/Recommendation (Dr. Bland): Case discussed with . The patient underwent a coronary angiogram with left heart catheterization on 09/25/2024 which revealed normal coronaries. Ventriculography revealed an EF of 40% with global hypokinesis. We will initiate the patient on guideline directed medical therapy for CHF. Continue with lipid-lowering agent. There is no further inpatient cardiac workup indicated at this time. Patient was advised to follow up with Cardiology in the outpatient setting in 1-2 weeks post discharge. Thank you for allowing us to care for this patient. Please call with any questions or concerns. This medical document was created using an electronic medical record system with voice recognition software and computerized dictation system. Although this document has been carefully reviewed, there might still be some phonetic and typographical errors. Occasional wrong-word or ``sound-alike substitutions may have occurred due to the inherent limitations of voice recognition software. These areas are purely typographical due to imperfections of the software programs and do not reflect any compromise in the patient's medical care. Please read the chart carefully and recognize, using context, where these substitutions have occurred. Plan discussed with: Patient Date of Service: Sep 26, 2024 Billing Provider: CLAUDIA GUSMAN Common Visit Codes: [id number] INP/OBS CARE(HIGH) CLAUDIA GUSMAN Sep 26, 2024 12:31
[2024-09-26] MEDS: DOCUSATE SOD 100 MG CAP PO PRN (20:21)
[2024-09-26] MEDS ORDERED: MELATONIN 5 MG TAB PO SCH (22:00)
[2024-09-27] VITALS (8 sets, daily range): BP systolic 104–142; BP diastolic 50–81; PULSE 52–78; RESP 16–20; TEMP 97.5–98.5; O2SAT 96–100
[2024-09-27 06:10] LABS: Basophils # (auto) 0.1 10 ^3/uL (0-0.2); Basophils % (auto) 0.6 % (0.0-2.0); Eosinophils # (auto) 0.2 10 ^3/uL (0-0.8); Eosinophils % (auto) 1.8 % (0.0-7.0); Hematocrit 38.1 % (36.0-46.0); Hemoglobin 12.5 g/dL (12.2-16.2); Lymphocytes # (auto) 1.8 10 ^3/uL (0.4-5.4); Lymphocytes % (auto) 20.1 % (10.0-50.0); Mean Corpuscular Hemoglobin 24.7 pg (28.0-32.0); Mean Corpuscular Hgb Conc. 32.8 g/dL (32.0-36.0); Mean Corpuscular Volume 75.4 fL (80.0-100.0); Monocytes # (auto) 0.6 10 ^3/uL (0-1.3); Monocytes % (auto) 7.3 % (0.0-12.0); Neutrophils # (auto) 6.2 10 ^3/uL (1.6-8.6); Neutrophils % (auto) 70.2 % (37.0-80.0); Platelet Count (auto) 296 10^3/uL (140-450); Red Blood Cells 5.05 10^6/uL (4.0-5.20); White Blood Cell 8.8 10^3/uL (4.4-10.8)
[2024-09-27 06:21] LABS: Alanine Aminotransferase 13 U/L (7-40); Albumin 4.1 g/dL (3.2-4.8); Alkaline Phosphatase 77 U/L (46-116); Anion Gap 9 (5-15); Aspartate Aminotransferase 9 U/L (<34); BUN/Creatinine Ratio 13.5 (10.0-20.0); Bilirubin, Total 0.3 mg/dL (0.2-1.0); Blood Urea Nitrogen 12 mg/dL (9-23); Calcium 9.6 mg/dL (8.7-10.4); Carbon Dioxide 26 mmol/L (20-31); Chloride 106 mmol/L (98-107); Glucose 95 mg/dL (74-106); Potassium 4.1 mmol/L (3.5-5.1); Sodium 141 mmol/L (136-145); Total Protein 6.3 g/dL (5.7-8.2)
[2024-09-27] MEDS: EMPAGLIFLOZIN 10 MG TAB PO SCH (08:29)
[2024-09-27] MEDS: METOPROLOL SUCCINATE XL 50 MG TAB PO SCH (08:30)
[2024-09-27] MEDS: SPIRONOLACTONE 25 MG TAB PO SCH (08:30)
--- NOTE | 2024-09-27 13:18 | DVHPN2 ---
Subjective titrate GDMT. chest pain improved Reviewed: H&P Changes from previous H/P or p: No Changes General: Per HPI Objective Vitals Vital Signs Date Time Temp Pulse Resp B/P (MAP) Pulse Ox O2 Delivery O2 Flow Rate FiO2 09/27/24 09:00 98.5 64 16 115/67 (83) 96 98.5 09/27/24 08:00 Nasal Cannula* 2 28 Intake/Output Intake and Output 09/27/24 07:00 Intake Total 2780 ml Balance 2780 ml Intake Oral 2780 ml # Voids 8 Medications Current Medications Medications Dose Ordered Sig/Liat Route Start Time Stop Time Status Last Admin Dose Admin Sodium Chloride 10 ml Q8HR IV 09/24/24 22:00 09/27/24 05:34 10 ML Docusate Sodium 100 mg BIDPRN PRN PO 09/24/24 16:00 09/27/24 08:29 100 MG Acetaminophen 650 mg Q6HP PRN PO 09/24/24 16:00 09/25/24 09:54 650 MG Acetaminophen/ Hydrocodone Bitart 1 tab Q4HP PRN PO 09/24/24 16:00 09/25/24 14:45 1 TAB Ondansetron HCl 4 mg Q4HP PRN IV 09/24/24 16:00 09/25/24 16:47 4 MG Nitroglycerin 0.4 mg Q5MINP PRN SL 09/24/24 16:00 Morphine Sulfate 2 mg Q30M PRN IV 09/24/24 16:00 09/25/24 04:27 2 MG Pantoprazole Sodium 40 mg DAILY IV 09/25/24 10:00 09/27/24 08:30 40 MG Aspirin 81 mg DAILY PO 09/25/24 10:00 09/27/24 08:29 81 MG Atorvastatin Calcium 20 mg HS PO 09/24/24 22:00 09/26/24 21:19 20 MG Hydralazine HCl 10 mg Q6HP PRN IV 09/24/24 17:30 Lisinopril 20 mg DAILY PO 09/25/24 10:00 09/27/24 08:30 20 MG Melatonin 5 mg HS PO 09/26/24 00:15 09/26/24 21:19 5 MG Metoprolol Succinate 25 mg DAILY PO 09/27/24 10:00 6/21/25 08:30 25 MG Empaglifozin 10 mg DAILY PO 09/27/24 10:00 09/27/24 08:29 10 MG Spironolactone 25 mg DAILY PO 09/27/24 10:00 09/27/24 08:30 25 MG Laboratory Results Laboratory Tests 09/27/24 04:57 Chemistry Test 09/27/24 04:57 Albumin 4.1 g/dL (3.2-4.8) Calcium Level 9.6 mg/dL (8.7-10.4) Total Protein 6.3 g/dL (5.7-8.2) LFT Test 09/27/24 04:57 Alanine Aminotransferase (ALT) 13 U/L (7-40) Alkaline Phosphatase 77 U/L (46-116) Aspartate Amino Transferase (AST) 9 U/L (<34) Total Bilirubin 0.3 mg/dL (0.2-1.0) Urinalysis Test 09/24/24 08:59 Urine Color Light-yellow (Yellow) Urine Clarity Clear (Clear) Urine pH 7.0 (5.0-9.0) Urine Specific [place] 1.012 (1.001-1.035) Urine Protein 1+ (Negative) H Urine Ketones Negative (Negative) Urine Blood Negative /uL (Negative) Urine Nitrite Negative (Negative) Urine Bilirubin Negative (Negative) Urine Urobilinogen Normal mg/dL (Negative) Urine Leukocyte Esterase Negative /uL (Negative) Urine RBC 1 /hpf (0 - 4) Urine Microscopic WBC 1 /HPF (0-5) Urine Squamous Epithelial Cells Few /hpf (<5) Urine Bacteria None seen /hpf (None Seen) Urine Hyaline Casts Few /lpf (0 - 2) Urine Mucus Few (None Seen) Urine Glucose Normal mg/dL (Normal) Assessment/Plan Assessment/Plan Chest pain, ruled out coronary artery disease - status post angiography 09/25 Ruled out [place] Acute on chronic HFrEF (EF 40% on ventriculography), NYHA class II - start HFrEF medications Ruled out structural cardiac abnormalities Troponinemia, likely type 2 due to above NSTEMI Hypertension Dyslipidemia Obesity Plan discussed with: Patient Date of Service: Sep 27, 2024 Billing Provider: CAROLYN MCCLURE MD Common Visit Codes: [id number] INP/OBS CARE(HIGH) CAROLYN MCCLURE MD Sep 27, 2024 13:18
[2024-09-28] VITALS (7 sets, daily range): BP systolic 90–102; BP diastolic 54–66; PULSE 48–71; RESP 16–20; TEMP 97.7–98.5; O2SAT 94–98
[2024-09-28 05:13] LABS: Basophils # (auto) 0.1 10 ^3/uL (0-0.2); Basophils % (auto) 0.8 % (0.0-2.0); Eosinophils # (auto) 0.2 10 ^3/uL (0-0.8); Eosinophils % (auto) 2.3 % (0.0-7.0); Hematocrit 39.6 % (36.0-46.0); Lymphocytes # (auto) 1.8 10 ^3/uL (0.4-5.4); Lymphocytes % (auto) 18.9 % (10.0-50.0); Mean Corpuscular Hgb Conc. 32.9 g/dL (32.0-36.0); Mean Corpuscular Volume 75.9 fL (80.0-100.0); Monocytes # (auto) 0.8 10 ^3/uL (0-1.3); Monocytes % (auto) 8.5 % (0.0-12.0); Neutrophils # (auto) 6.5 10 ^3/uL (1.6-8.6); Neutrophils % (auto) 69.5 % (37.0-80.0); Nucleated Red Blood Cells % 0.1 %; Platelet Count (auto) 333 10^3/uL (140-450); Red Blood Cells 5.22 10^6/uL (4.0-5.20); White Blood Cell 9.4 10^3/uL (4.4-10.8)
[2024-09-28 05:25] LABS: Albumin 4.3 g/dL (3.2-4.8); Alkaline Phosphatase 84 U/L (46-116); Anion Gap 9 (5-15); Aspartate Aminotransferase 11 U/L (<34); BUN/Creatinine Ratio 16.7 (10.0-20.0); Blood Urea Nitrogen 17 mg/dL (9-23); Calcium 9.4 mg/dL (8.7-10.4); Carbon Dioxide 26 mmol/L (20-31); Chloride 105 mmol/L (98-107); Glucose 100 mg/dL (74-106); Potassium 4.3 mmol/L (3.5-5.1); Sodium 140 mmol/L (136-145); Total Protein 6.6 g/dL (5.7-8.2)
[2024-09-28 05:30] LABS: Alanine Aminotransferase 9 U/L (7-40); Bilirubin, Total 0.3 mg/dL (0.2-1.0)
[2024-09-28] MEDS ORDERED: ASPI-325 PO (13:42)
[2024-09-28] MEDS ORDERED: ATOR20TA50 PO (13:42)
[2024-09-28] MEDS ORDERED: METO-6 PO (13:42)
[2024-09-28] MEDS ORDERED: SPIR25TA PO (13:42)
--- NOTE | 2024-09-28 13:43 | DVHDS2 ---
Discharge Summary Date of Admission Sep 24, 2024 at 15:52 Date of Discharge: Sep 26, 2024 Labs/Diagnostic Data: Laboratory Results Test 09/28/24 04:46 09/25/24 14:22 09/25/24 07:07 09/24/24 21:50 White Blood Count 9.4 10^3/uL (4.4-10.8) Red Blood Count 5.22 10^6/uL (4.0-5.20) Hemoglobin 13.0 g/dL (12.2-16.2) Hematocrit 39.6 % (36.0-46.0) Mean Corpuscular Volume 75.9 fL (80.0-100.0) Mean Corpuscular Hemoglobin 25.0 pg (28.0-32.0) Mean Corpuscular Hemoglobin Concent 32.9 g/dL (32.0-36.0) Red Cell Distribution Width 16.0 % (11.8-14.3) Platelet Count 333 10^3/uL (140-450) Mean Platelet Volume 7.1 fL (6.9-10.8) Neutrophils (%) (Auto) 69.5 % (37.0-80.0) Lymphocytes (%) (Auto) 18.9 % (10.0-50.0) Monocytes (%) (Auto) 8.5 % (0.0-12.0) Eosinophils (%) (Auto) 2.3 % (0.0-7.0) Basophils (%) (Auto) 0.8 % (0.0-2.0) Neutrophils # (Auto) 6.5 10 ^3/uL (1.6-8.6) Lymphocytes # (Auto) 1.8 10 ^3/uL (0.4-5.4) Monocytes # (Auto) 0.8 10 ^3/uL (0-1.3) Eosinophils # (Auto) 0.2 10 ^3/uL (0-0.8) Basophils # (Auto) 0.1 10 ^3/uL (0-0.2) Nucleated Red Blood Cells 0.1 % Sodium Level 140 mmol/L (136-145) Potassium Level 4.3 mmol/L (3.5-5.1) Chloride Level 105 mmol/L (98-107) Carbon Dioxide Level 26 mmol/L (20-31) Anion Gap 9 (5-15) Blood Urea Nitrogen 17 mg/dL (9-23) Creatinine 1.02 mg/dL (0.550-1.02) Glomerular Filtration Rate Calc 71 mL/min (>90) BUN/Creatinine Ratio 16.7 (10.0-20.0) Serum Glucose 100 mg/dL (74-106) Calcium Level 9.4 mg/dL (8.7-10.4) Total Bilirubin 0.3 mg/dL (0.2-1.0) Aspartate Amino Transferase (AST) 11 U/L (<34) Alanine Aminotransferase (ALT) 9 U/L (7-40) Alkaline Phosphatase 84 U/L (46-116) Total Protein 6.6 g/dL (5.7-8.2) Albumin 4.3 g/dL (3.2-4.8) Prothrombin Time 11.0 sec (9.3-11.8) Prothrombin Time INR 1.04 (0.9-1.15) Activated Partial Thromboplast Time 41.2 SEC (24.5-34.5) Hepatitis B Surface Antigen Negative (Negative) Hepatitis C Antibody Negative (Negative) Troponin I High Sensitivity 5210 ng/L (</=34) Test 09/24/24 16:08 09/24/24 08:59 Hemoglobin A1c 5.4 % A1C (<5.7) Triglycerides Level 143 mg/dL (< 150) Cholesterol Level 162 mg/dL (< 200) LDL Cholesterol 105 mg/dL (< 100) HDL Cholesterol 43 mg/dL (40-59) Thyroid Stimulating Hormone (TSH) 1.12 uIU/mL (0.55-4.78) Beta HCG, Quantitative 0.8 mIU/mL (1.5-4.2) Urine Color Light-yellow (Yellow) Urine Clarity Clear (Clear) Urine pH 7.0 (5.0-9.0) Urine Specific [place] 1.012 (1.001-1.035) Urine Protein 1+ (Negative) Urine Ketones Negative (Negative) Urine Blood Negative /uL (Negative) Urine Nitrite Negative (Negative) Urine Bilirubin Negative (Negative) Urine Urobilinogen Normal mg/dL (Negative) Urine Leukocyte Esterase Negative /uL (Negative) Urine RBC 1 /hpf (0 - 4) Urine Microscopic WBC 1 /HPF (0-5) Urine Squamous Epithelial Cells Few /hpf (<5) Urine Bacteria None seen /hpf (None Seen) Urine Hyaline Casts Few /lpf (0 - 2) Urine Mucus Few (None Seen) Urine Glucose Normal mg/dL (Normal) Other Laboratory Tests 09/28/24 04:46 Brief Hx & Hospital Course: 38 F with HTN admitted for chest pain concerning of cardiac origin and NSTEMI. underwent cath with normal coronaries and mild cardiomyopathy. patient initially was for transfer to [facility] but have issues with insurance. GDMT initiated. Stable to dc home and follow up outpatient. Jardiance and entresto was held on dc, to be restarted as outpatient Condition at Discharge: Good Final Diagnosis/Problems List Chest pain, ruled out coronary artery disease - status post angiography 09/25 Ruled out LA Acute on chronic HFrEF (EF 40% on ventriculography), NYHA class II - start HFrEF medications Ruled out structural cardiac abnormalities Troponinemia, likely type 2 due to above NSTEMI Hypertension Dyslipidemia Obesity Discharge Disposition: Home Discharge Instruct/Medications Diet: Cardiac 2g Na,low cholest Activity: No Restrictions, As Tolerated Follow Up/Referral: below Medications: jardiance and entresto to be started as outpatient Discharge Statement: "Patient was advised to return to the ER or call 911 if any headaches, dizziness, shortness of breath, chest pain, abdominal pain, bleeding, fevers, or worsening of medical condition. Patient was counseled about treatment plan, medications, possible side effects, patientverbalized understanding. All questions were answered to the best of my ability. This discharge took greater then 30 minutes in planning, reviewing documentation, counseling the patient, and discussing with other team members." ASSESSMENT ASSESSMENT Assessment Chest pain, ruled out coronary artery disease - status post angiography 09/25 Ruled out [place] Acute on chronic HFrEF (EF 40% on ventriculography), NYHA class II Ruled out structural cardiac abnormalities Troponinemia, likely type 2 due to above NSTEMI Hypertension Dyslipidemia Obesity Date of Service: Sep 28, 2024 Billing Provider: CAROLYN MCCLURE MD Common Visit Codes: [id number] DISCH DAY >30min CAROLYN MCCLURE MD Sep 28, 2024 13:43
== END 2024-09-28 17:00 | disposition home or self-care (01) | DRG 286 ==
LOC: ER 08:44 → OVERFLOW 15:52 → TELE-WESTW 09-25 18:37
PROVIDERS: ADMIT Student in an Organized Health Care Education/Training Program; ATTEND Student in an Organized Health Care Education/Training Program
PROC: 4A023N7 Measurement of Cardiac Sampling and Pressure, Left Heart, Percutaneous Approach (ICD-10-PCS; principal; 2024-09-25)
PROC: B211YZZ Fluoroscopy of Multiple Coronary Arteries using Other Contrast (ICD-10-PCS; 2024-09-25)
PROC: B215YZZ Fluoroscopy of Left Heart using Other Contrast (ICD-10-PCS; 2024-09-25)
DX: I11.0 Hypertensive heart disease with heart failure (principal); I50.23 Acute on chronic systolic (congestive) heart failure; Z68.41 Body mass index [BMI] 40.0-44.9, adult; E66.01 Morbid (severe) obesity due to excess calories; I42.9 Cardiomyopathy, unspecified; E78.5 Hyperlipidemia, unspecified; K21.9 Gastro-esophageal reflux disease without esophagitis; F41.9 Anxiety disorder, unspecified; Z87.442 Personal history of urinary calculi
CPT/HCPCS: 36415; 71045; 80048; 80053; 80061; 81001; 83036; 84443; 84484; 84702; 85025; 85610; 85730; 86803; 87340; 93005; 93306; 93458; 96365; 96375; 99152; 99291; G0378; J2250; J2405; J2470; Q9967